=== PATIENT | female | born 1960 | race Caucasian/White ===

== ENCOUNTER 2020-11-03 08:38 | Outpatient (REF) | payer OTHER, SELFPAY ==
--- NOTE | ~2020-11-03 | MM_ITS ---
EXAMINATION: MM SCREENING DIGITAL BREAST TOMOSYNTHESIS, BILATERAL CLINICAL INFORMATION: Screening. Asymptomatic. The lifetime risk of breast cancer based on the Tyrer-Cuzick Model is 17%. COMPARISON: Mammography: October 22, 2019 and studies dating back to February 02, 2014 TECHNIQUE: Digital breast tomosynthesis is performed in both the craniocaudal and mediolateral oblique views along with computer-aided detection (CAD). Synthesized 2D images are generated from the tomosynthesis. FINDINGS: The breasts are almost entirely fatty (ACR BI-RADS breast composition Category a). There are no significant masses, abnormal calcifications, or other abnormalities. MM/MM tomosynthesis screening BI IMPRESSION: There are no significant changes from prior study. ASSESSMENT: BI-RADS 1: Negative RECOMMENDATION: Routine annual mammography screening. This patient's information was entered into a reminder system with a target due date for their next mammogram.
== END 2020-11-03 08:39 | disposition home or self-care (01) ==
LOC: HO.MAMMO 08:38
PROVIDERS: PCP Internal Medicine; Visit Provider Internal Medicine
DX: Z12.31 Encounter for screening mammogram for malignant neoplasm of breast (principal)
CPT/HCPCS: 77063; 77067

== ENCOUNTER 2021-11-09 08:51 | Outpatient (REF) | payer OTHER, SELFPAY ==
--- NOTE | ~2021-11-09 | MM_ITS ---
EXAMINATION: MM SCREENING DIGITAL BREAST TOMOSYNTHESIS, BILATERAL CLINICAL INFORMATION: Screening. Asymptomatic. Family history breast cancer, sister. The lifetime risk of breast cancer based on the Tyrer-Cuzick Model is 17%. COMPARISON: Mammography: 11/03/2020, 10/22/2019, 05/15/2018 TECHNIQUE: Digital breast tomosynthesis is performed in both the craniocaudal and mediolateral oblique views along with computer-aided detection (CAD). Synthesized 2D images are generated from the tomosynthesis. FINDINGS: There are scattered areas of fibroglandular density (ACR BI-RADS breast composition Category b). There are no significant masses, abnormal calcifications, or other abnormalities. No developing density or interval architectural abnormality. The axilla and skin contours are unremarkable. No significant changes. MM/MM tomosynthesis screening BI IMPRESSION: No mammographic evidence of malignancy. ASSESSMENT: BI-RADS 1: Negative RECOMMENDATION: Routine annual mammography screening. This patient's information was entered into a reminder system with a target due date for their next mammogram.
== END 2021-11-09 08:52 | disposition home or self-care (01) ==
LOC: HO.MAMMO 08:51
PROVIDERS: PCP Internal Medicine; Visit Provider Internal Medicine
DX: Z12.31 Encounter for screening mammogram for malignant neoplasm of breast (principal)
CPT/HCPCS: 77063; 77067

== ENCOUNTER 2022-11-15 08:47 | Outpatient (REF) | payer OTHER, SELFPAY | END 2022-11-15 08:48 | disposition home or self-care (01) | LOC: HO.MAMMO 08:47 | PROVIDERS: PCP Internal Medicine; Visit Provider Internal Medicine | DX: Z12.31 Encounter for screening mammogram for malignant neoplasm of breast (principal) | CPT/HCPCS: 77063; 77067 ==

== ENCOUNTER → 2022-11-15 09:00 | Outpatient (BNV) | payer OTHER, SELFPAY | PROVIDERS: PCP Internal Medicine; Visit Provider Radiology Diagnostic Radiology | DX: Z12.31 Encounter for screening mammogram for malignant neoplasm of breast (principal) | CPT/HCPCS: 77063; 77067 ==

== ENCOUNTER 2023-11-18 12:02 | Outpatient (REF) | payer OTHER, SELFPAY ==
--- NOTE | ~2023-11-18 | MM_ITS ---
EXAMINATION: MM SCREENING DIGITAL BREAST TOMOSYNTHESIS, BILATERAL CLINICAL INFORMATION: Screening. Asymptomatic. COMPARISON: Mammography: Comparison is made with available priors TECHNIQUE: Digital breast mammography with tomosynthesis is performed in both the craniocaudal and mediolateral oblique views along with computer-aided detection (CAD). FINDINGS: There are scattered areas of fibroglandular density (ACR BI-RADS breast composition Category b). Right: There are no significant masses, abnormal calcifications, or other abnormalities. Left: Asymmetry superior breast anterior depth on MLO view. No suspicious calcifications or other abnormal findings. MM/MM tomosynthesis screening BI IMPRESSION: Additional imaging is recommended ASSESSMENT: BI-RADS BI-RADS 0 - Incomplete: Needs additional Imaging. RECOMMENDATION: 1. Additional views of the left breast 2. Targeted ultrasound if warranted after review of the additional views. 3. Radiology department staff will contact the patient for additional imaging. Additional Imaging required This examination should not preclude the clinical evaluation of a suspicious palpable abnormality. This patient's information was entered into a reminder system with a target due date for their next mammogram. Electronically signed by: Renee Tuttle DO 11/28/2023 09:04 AM EDT
== END 2023-11-18 12:03 | disposition home or self-care (01) ==
LOC: HO.MAMMO 12:02
PROVIDERS: Visit Provider Internal Medicine
DX: Z12.31 Encounter for screening mammogram for malignant neoplasm of breast (principal)
CPT/HCPCS: 77063; 77067

== ENCOUNTER → 2023-11-18 12:15 | Outpatient (BNV) | payer OTHER, SELFPAY | PROVIDERS: Visit Provider Internal Medicine | DX: Z12.31 Encounter for screening mammogram for malignant neoplasm of breast (principal) | CPT/HCPCS: 77063; 77067 ==

== ENCOUNTER 2024-01-26 13:01 | Outpatient (REF) | payer OTHER, SELFPAY ==
--- NOTE | ~2024-01-26 | US_ITS ---
EXAMINATION: MM DIAGNOSTIC DIGITAL BREAST TOMOSYNTHESIS, LEFT Limited left breast ultrasound. CLINICAL INFORMATION: Call back from screening screening for left breast asymmetry. COMPARISON: Mammography: Comparison is made with available prior examinations. TECHNIQUE: Digital breast tomosynthesis is performed in both the craniocaudal and mediolateral oblique views along with computer-aided detection (CAD). Synthesized 2D images are generated from the tomosynthesis. Limited left breast ultrasound. FINDINGS: There are scattered areas of fibroglandular density (ACR BI-RADS breast composition Category b). The previously seen asymmetry in the superior left breast anterior depth on MLO view does not persist on additional imaging projections and likely represented overlapping breast tissue. There are no significant masses, abnormal calcifications, or other abnormalities. Targeted color Doppler ultrasound in the left breast scanning from 10-2 o'clock demonstrates normal fibroglandular breast tissue. There is an incidental hypoechoic oval circumscribed parallel area likely representing a benign lipoma measuring 8 x 6 x 8 mm and an adjacent smaller 4 x 3 mm hyperechoic oval circumscribed subcutaneous mass which is hyperechoic consistent with a benign lipoma. There is no suspicious sonographic abnormality. US/US breast LT limited mamm only IMPRESSION: No mammographic evidence of malignancy. Incidental benign lipomas. Benign. ASSESSMENT: BI-RADS BI-RADS 2 - Benign Findings RECOMMENDATION: 1 year F/U Results were provided to the patient at time of visit by the technologist. This patient's information was entered into a reminder system with a target due date for their next mammogram. Electronically signed by: Renee Tuttle DO 01/26/2024 02:05 PM LAWANDA MOYER
--- OUTSIDE RECORDS SUMMARY | 2024-01-28 15:32 | XMS_ITS | Continuity of Care Document ---
Author Organization [facility] Adult Medicine Address [address] [place] [address]- Care Team Providers Care Master Sonar Technician Name Role Phone Vinay Melgar Primary Care Physician [facility]counter [facility] Date(s): 12/10/23 - 01/09/24 [facility] [address] [place] [address]- Encounter Type: Triage Allergies, Adverse Reactions, Alerts Substance Criticality Severity Reaction Reaction Severity Status penicillins Unable to assess criticality Persistent Severe Rash Active Immunizations Given and Recorded Vaccine Date Status Refusal Reason influenza virus vaccine, inactivated 11/14/23 Casey rded influenza virus vaccine, inactivated 11/05/22 Casey rded influenza virus vaccine, inactivated 11/16/21 Give n influenza virus vaccine, inactivated 11/21/20 Casey rded influenza virus vaccine, inactivated 11/25/19 Casey rded influenza virus vaccine, inactivated 11/22/17 Casey rded influenza virus vaccine, inactivated 12/01/16 Casey rded influenza virus vaccine, inactivated 12/06/15 Casey rded influenza virus vaccine, inactivated 01/06/15 Casey rded SARS-CoV-2(COVID-19)mRNA-LNP vac([id number]) 11/14/23 Recorded zoster vaccine, inactivated 04/12/23 Recorded zoster vaccine, inactivated 01/20/23 Recorded tetanus/diphtheria/pertussis, acel(Tdap) 08/26/22 Recorded [id number] 12y+ bivalent booster vax 11/19/21 Recorded SARS-CoV-2 (COVID-19) mRNA BNT-162b2 vac 12/12/20 Given SARS-CoV-2 (COVID-19) mRNA BNT-162b2 vac 04/24/20 Given SARS-CoV-2 (COVID-19) mRNA BNT-162b2 vac 04/03/20 Given tetanus-diphtheria toxoids (Td) 07/18/16 Recorded Medications atorvastatin 40 mg oral tablet 1 tablet, By Mouth, Daily, # 90 tablet, 3 Refills, Maintenance, 01/07/24 5:31:00 PM EST, [id number], 152, cm, 11/06/23 10:04:00 EDT, Height, 72.6, kg, 11/06/23 10:04:00 EDT, Dry Weight Start Date: 01/07/24 Status: Ordered Quantity: 90.0 Unit: tablet Repeat number: 1 Metoprolol Succinate ER 25 mg oral tablet, extended release 1 tablet, By Mouth, Daily, # 90 tablet, 1 Refills, Maintenance, 10/17/23 10:01:00 PM EDT, [id number], 152, cm, 11/27/22 7:54:00 EDT, Height Start Date: 10/17/23 Status: Ordered Quantity: 90.0 Unit: tablet Repeat number: 1 polyethylene glycol 3350 oral powder for reconstitution = 17 Gm, By Mouth, Daily, dissolve in water or juice, # 527 Gm, 1 Refills, Maintenance, 11/27/22 9:21:00 AM EDT, REC Powder, [facility]/pharmacy #[id number], Partial fill upon patient request if the prescription is for a schedule II opioid drug., 17 Gm By Mouth Daily,Instr:dissolve in water or juice, 152, cm, 11/27/22 7:54:00 EDT, Height Start Date: 11/27/22 Status: Ordered Quantity: 527.0 Unit: g Repeat number: 2 warfarin 2.5 mg oral tablet 2 tablet, By Mouth, Daily, # 180 tablet, 2 Refills, Maintenance, 06/07/23 11:49:00 AM EDT, [id number], 152, cm, 11/27/22 7:54:00 EDT, Height Start Date: 06/07/23 Status: Ordered Quantity: 180.0 Unit: tablet Repeat number: 1 Problem List Condition Confirmation Course Effective Dates Status H ealth Status Informant 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 1 Confirmed Active Cataract of right eye Confirmed Active Cerebrovascular accident (CVA) 2 Confirmed 08/17/00 Active Nick's thyroiditis 3 Confirmed Active HLD (hyperlipidemia) Confirmed Active Thyroid nodule Confirmed Active TIA (transient ischemic attack) Confirmed Active 56924 2No residual symptoms 3Needs repeat US and labs yearly Social History Social History Type Response Smoking Status Former smoker, quit more than 30 days ago; Type: Cigarettes; Tobacco use times per day: socially; Started at age: 15; Stopped at age: 23; entered on: 05/09/20 Sex Sex Representation Female (finding) Patient Care team information Care Team Personnel Name: Catalina Barrett MA Position: [facility] MA Member Role: Lifetime Consulting Physician Name: Shazia Landis Position: [facility] Outreach Member Role: Lifetime Consulting Physician Name: Vinay Melgar Position: [facility] PCO Associate Professional Member Role: PCP Address: [address] [place] [address] Telecom: Care Team Related Persons Name: LEONCIO LENTZ Insurance Providers Guarantor name: STEPHEN LENTZ Health Plan Information #: 1 Payer: [employer] Member Number: NA Policy Number: NA Group Number: NA
--- OUTSIDE RECORDS SUMMARY | 2024-01-28 15:33 | XMS_ITS | Continuity of Care Document ---
Author Organization [facility] Address [address] [place] [address]- Care Team Providers Care Table Operator Name Role Phone Vinay Melgar Primary Care Physician [facility]counter [facility] Date[facility]s): 12/15/23 - 01/14/24 [facility] [address] [place] [phone] Attending Physician: Kasey Bello Admitting Physician: AdmKasey carrasco Referring Physician: AdmtrKasey Encounter Type: Triage Allergies, Adverse Reactions, Alerts [...] virus vaccine, inactivated 01/06/15 Casey rded SARS-CoV-2(COVID-19)mRNA-LNP vac([id number]) 11/14/23 Recorded zoster vaccine, inactivated 04/12/23 Recorded zoster vaccine, inactivated 01/20/23 Recorded tetanus/diphtheria/pertussis, acel(Tdap) 08/26/22 Recorded [id number] 12y+ bivalent booster vax 11/19/21 Recorded SARS-CoV-2 (COVID-19) mRNA BNT-162b2 vac 12/12/20 Given SARS-CoV-2 (COVID-19) mRNA BNT-162b2 vac 04/24/20 Given SARS-CoV-2 (COVID-19) mRNA BNT-162b2 vac 04/03/20 Given tetanus-diphtheria toxoids (Td) 07/18/16 Recorded Medications atorvastatin 40 mg oral tablet 1 tablet, By Mouth, Daily, # 90 tablet, 3 Refills, Maintenance, 01/07/24 5:31:00 PM EST, [facility], 152, cm, 11/06/23 10:04:00 EDT, Height, 72.6, kg, 11/06/23 10:04:00 EDT, Dry Weight Start Date: 01/07/24 Status: Ordered Quantity: 90.0 Unit: tablet Repeat number: 1 Metoprolol Succinate ER 25 mg oral tablet, extended release 1 tablet, By Mouth, Daily, # 90 tablet, 1 Refills, Maintenance, 10/17/23 10:01:00 PM EDT, [facility], 152, cm, 11/27/22 7:54:00 EDT, Height Start Date: 10/17/23 Status: Ordered Quantity: 90.0 Unit: tablet Repeat number: 1 polyethylene glycol 3350 oral powder for reconstitution = 17 Gm, By Mouth, Daily, dissolve in water or juice, # 527 Gm, 1 Refills, Maintenance, 11/27/22 9:21:00 AM EDT, REC Powder, [facility]/pharmacy #[id number], Partial fill upon patient request if [...] Refills, Maintenance, 06/07/23 11:49:00 AM EDT, [id number], 152, cm, 11/27/22 7:54:00 EDT, Height Start [...] Active TIA (transient ischemic attack) Confirmed Active 25656 2No residual symptoms 3Needs repeat US and labs yearly Social History Social History Type Response Smoking Status Former smoker, quit more than 30 days ago; Type: Cigarettes; Tobacco use times per day: socially; Started at age: 15; Stopped at age: 23; entered on: 05/09/20 Sex Sex Representation Female (finding) Patient Care team information Care Team Personnel Name: Catalina Barrett MA Position: [facility] MA Member Role: Lifetime Consulting Physician Name: Shazia Landis Position: [facility] Outreach Member Role: Lifetime Consulting Physician Name: Vinay Melgar Position: [facility] PCO Associate Professional Member Role: PCP Address: [address] [place] [address] Telecom: Care Team Related Persons Name: LEONCIO LENZT Insurance Providers Guarantor name: STEPHENANILA LENTZ Health Plan Information #: 1 Payer: [employer] Member Number: NA Policy Number: NA Group Number: NA
--- OUTSIDE RECORDS SUMMARY | 2024-01-28 15:33 | XMS_ITS | Continuity of Care Document ---
Author Organization [facility] Adult [facility] Address [address] [place] [address]- Care Team Providers Care Community Manager Name Role Phone Vinay Melgar Primary Care Physician Encounter [facility] [id number] Date(s): 11/20/23 - 01/14/24 [facility] [address] [place] [address]- Attending Physician: Not on Staff, Attending MD Encounter Type: Pre-OutPatient One Time Allergies, Adverse Reactions, Alerts Substance Criticality Severity [...] virus vaccine, inactivated 01/06/15 Casey rded SARS-CoV-2(COVID-19)mRNA-LNP vac([id number]) 11/14/23 Recorded zoster vaccine, inactivated 04/12/23 Recorded zoster vaccine, inactivated 01/20/23 Recorded tetanus/diphtheria/pertussis, acel(Tdap) 08/26/22 Recorded [id number] 12y+ bivalent booster vax 11/19/21 Recorded SARS-CoV-2 (COVID-19) mRNA BNT-162b2 vac 12/12/20 Given SARS-CoV-2 (COVID-19) mRNA BNT-162b2 vac 04/24/20 Given SARS-CoV-2 (COVID-19) mRNA BNT-162b2 vac 04/03/20 Given tetanus-diphtheria toxoids (Td) 07/18/16 Recorded Medications atorvastatin 40 mg oral tablet 1 tablet, By Mouth, Daily, # 90 tablet, 3 Refills, Maintenance, 01/07/24 5:31:00 PM EST, [id number], 152, cm, 11/06/23 10:04:00 EDT, Height, 72.6, kg, 11/06/23 10:04:00 EDT, Dry Weight Start Date: 01/07/24 Status: Ordered Quantity: 90.0 Unit: tablet Repeat number: 1 Metoprolol Succinate ER 25 mg oral tablet, extended release 1 tablet, By Mouth, Daily, # 90 tablet, 1 Refills, Maintenance, 10/17/23 10:01:00 PM EDT, [id number], 152, cm, 11/27/22 7:54:00 EDT, Height Start Date: 10/17/23 Status: Ordered Quantity: 90.0 Unit: tablet Repeat number: 1 polyethylene glycol 3350 oral powder for reconstitution = 17 Gm, By Mouth, Daily, dissolve in water or juice, # 527 Gm, 1 Refills, Maintenance, 11/27/22 9:21:00 AM EDT, REC Powder, [facility]/pharmacy #[id number], Partial fill upon patient request if [...] Refills, Maintenance, 06/07/23 11:49:00 AM EDT, [id number], 152, cm, 11/27/22 7:54:00 EDT, Height Start [...] Active TIA (transient ischemic attack) Confirmed Active 67365 2No residual symptoms 3Needs repeat US and labs yearly Social History Social History Type Response Smoking Status Former smoker, quit more than 30 days ago; Type: Cigarettes; Tobacco use times per day: socially; Started at age: 15; Stopped at age: 23; entered on: 05/09/20 Sex Sex Representation Female (finding) Patient Care team information Care Team Personnel Name: Catalina Barrett MA Position: [facility] MA Member Role: Lifetime Consulting Physician Name: Shazia Landis Position: [facility] Outreach Member Role: Lifetime Consulting Physician Name: Vinay Melgar Position: [facility] PCO Associate Professional Member Role: PCP Address: [address] [place] [address] Telecom: Care Team Related Persons Name: LEONCIO LENTZ Insurance Providers Guarantor name: STEPHEN LENTZ Health Plan Information #: 1 Payer: [facility] [employer] Member Number: [id number] Policy Number: NA Group Number: [id number] Health Plan Information #: 2 Payer: [facility] [employer] Member Number: [id number] Policy Number: NA Group Number: NA
== END 2024-01-26 13:02 | disposition home or self-care (01) ==
LOC: HO.MAMMO 13:01
PROVIDERS: PCP Internal Medicine; Visit Provider Physician Assistant Medical
DX: N64.89 Other specified disorders of breast (principal)
CPT/HCPCS: 76642; 77061; 77065

== ENCOUNTER → 2024-01-26 13:15 | Outpatient (BNV) | payer OTHER, SELFPAY | PROVIDERS: PCP Internal Medicine; Visit Provider Internal Medicine | DX: Z12.31 Encounter for screening mammogram for malignant neoplasm of breast (principal) | CPT/HCPCS: 76642; 77061; 77065 ==